=== PATIENT | male | born 1935 | race Caucasian/White ===

== ENCOUNTER 2019-04-15 10:59 | Inpatient (IN) | payer MEDICARE ==
--- NOTE | 2019-04-16 15:21 | Rehab Evaluation ---
Patient Information - Patient Information Diagnosis: deconditioning Ordered Treatment: OT Evaluate and Treat Status: Initial Evaluation Surgery: No Past Medical/Surgical Hx: PAST MEDICAL/SURGICAL HISTORY Past Surgical History pt states look up on record CABG diptheria bilateral total knees bilateral total hips PMH - Respiratory Hx Sleep Apnea Yes Hx of CPAP Yes PMH - Cardiovascular Hx Abnormal EKG Yes Hx Chest Pain Yes PMH - Neuro Hx Syncope Yes PMH - GI Hx Gastroesophageal Reflux Yes Hx Ulcer Yes PMH - Hx Bladder Problem Yes Hx Prostate Problems Yes PMH - Endocrine Hx Diabetes Yes Hx Thyroid Disease No PMH - Musculoskeletal Hx Arthritis Yes PMH - Psych Hx Anxiety Yes Hx Behavior Problems Yes Hx Depression Yes PMH - Hematology/Oncology Hx Cancer Yes: skin with multiple procedures Premorbid Status: Detail (Pt lives alone in a 1 story house with 3 steps and 2 wide railings at the entrance. He has a tub/shower combination and prefers to sit in the tub but he usually stands to shower. He has a seat but does not use it. He does have a grab bar in the tub. He has an elevated toilet, no grab bar. He is Ind with all home mgmt, meal prep, laundry and yard work. He has a 4 wheeled walker but was ambulatory without an assistive device until recently.) Social History: Detail (His son and daughter in law live 7 miles away) - Time With Patient Total Time Spent With Patient (Min): 25 Treatment Procedures: Detail (OT eval low complexity) Subjective Information - Subjective Information Per Patient Objective Data - Pain Pain Present: Yes (3-5/10 pain in left leg) - Mental Status Patient Orientation: Oriented x3 - Visual Perception Appears within normal limits for therapeutic activities (Pt wears glasses for reading) - ROM Within normal limits (Eduardo UE AROM WNL) - Strength/Tone Within normal limits (Eduardo UE strength 4+/5) - Coordination Appears within normal limits for therapeutic activities (Pt reports difficulty with coor at times.) - Transfers Independent (Ind with sit to stand from recliner) - Balance Balance Sitting: Good Balance Standing: Fair - Sensation Intact - Gait Detail (Pt ambulating in hallway with 2 wheeled walker and SBA.) - ADL's/IADL's Detail (Unable to formally assess ADLs as pt did not have any clothing available. He reports he was able to perform self cares today.) Therapy Assessment - Therapy Assessment Detail (Pt presents with good UE function and strength, need to further assess ADLs/IADLs.) Problem List - Problem List Occupational Therapy Problem List: Detail (1. Further assess pts level of Ind with showering and dressing. 2. Further assess pts level of Ind with IADLs.) Goals - Goals Occupational Therapy Goals: 1. Pt will be safe and Ind with showering in standing and sitting. 2. Pt will be Ind with total body dressing. 3. Pt will demonstrate Ind with light meal prep task using energy conservation techniques. Prognosis - Prognosis Good Plan - Plan Occupational Therapy Plan: OT 2-4 times per week to address ADLs/IADLs.
--- NOTE | 2019-04-16 15:56 | Rehab Evaluation ---
Patient Information - Patient Information Diagnosis: deconditioning Ordered Treatment: PT Evaluate and Treat Status: Initial Evaluation Surgery: No Past Medical/Surgical Hx: PAST MEDICAL/SURGICAL HISTORY Past Surgical History pt states look up on record CABG diptheria bilateral total knees bilateral total hips PMH - Respiratory Hx Respiratory Disorders Yes Hx Sleep Apnea Yes Hx of CPAP Yes Comment: doesn't use CPAP now PMH - Cardiovascular Hx Cardiovascular Disorders Yes Hx Abnormal EKG Yes Hx Chest Pain Yes Hx Heart Attack Yes: CABG Hx Hypertension Yes PMH - Neuro Hx Neurological Disorders Yes Hx Brain Tumor No Hx Syncope Yes PMH - GI Hx Gastrointestinal Disorders Yes Hx Gastroesophageal Reflux Yes Hx Ulcer Yes PMH - Hx Bladder Problem Yes Hx Prostate Problems Yes PMH - Endocrine Hx Diabetes Yes Hx Thyroid Disease No PMH - Musculoskeletal Hx Arthritis Yes PMH - Psych Hx Psychiatric Problems Yes Hx Anxiety Yes Hx Behavior Problems Yes Hx Depression Yes PMH - Hematology/Oncology Hx Cancer Yes: skin with multiple procedures Hx Chemotherapy Yes Premorbid Status: Detail (Pt lives alone in a 1 story house with 3 steps and 2 wide railings at the entrance. He has a tub/shower combination and prefers to sit in the tub but he usually stands to shower. He has a seat but does not use it. He does have a grab bar in the tub. He has an elevated toilet, no grab bar. He is Ind with all home mgmt, meal prep, laundry and yard work. He has a 4 wheeled walker but was ambulatory without an assistive device until recently.) Social History: Detail (His son and daughter in law live 7 miles away) Precautions: [place], Fall - Time With Patient Total Time Spent With Patient (Min): 30 Treatment Procedures: Detail (Initial Evaluation low complexity.) Subjective Information - Subjective Information Per Patient (The patient had complaints of constant L LE pain from hip to ankle laterally. Patient stated his pain was constantly 3 to 5 and increased with ambulation.) Objective Data - Mental Status Patient Orientation: Oriented x3 - ROM Within normal limits (Patient's R LE AROM is WNL. L LE AROM is minimally limited in dorsiflexion.) - Strength/Tone Not within normal limits (The patient's LE strength is as follows: R LE : generally 5/5 throughout (measured in a seated position) L LE: ankle musculature was dorsiflexors 4-/5, plantarflexors 4/5, knee flexors 4/5, extensors 4+/5, hip musculature was generally 4/5. Refer to OT for UE strength grades.) - Transfers Independent (The patient was independent with sit to and from sit transfer.) - Balance Balance Sitting: Good Balance Standing: Fair (The patient required support of walker for standing. Osvaldo [place] was not assessed using formal objective balance scale.) - Sensation Intact - Gait Detail (The patient ambulated with front wheeled walker a distance of 150 feet x 1 with supervision for safety. The patient's gait pattern was charecterized by L LE toeing out throughout, increased L hip adduction L swing through and as distance progressed decreased wt. bearing on the L LE and occasional L toe drag. The patient complained of increased LE pain with ambulation.) Therapy Assessment - Therapy Assessment Detail (The patient presents with L LE weakness and L LE pain which progresses with ambulation. Feel the patient would benefit from PT to increased LE strength and decrease pain,improve gait pattern and improve balance for functional activities.) Problem List - Problem List Physical Therapy Problem List: Detail (1) Assess the patient's balance using objective balance scale. 2) Increase LE strength 1/3 muscle grade to improve stability of gait pattern 3) Assess Bed mobility 4) The patient will be independent with all transfers. 5) The patient will ambulate household distances with minimal L LE pain with 4 wheeled walker and safe gait pattern.) Occupational Therapy Problem List: Detail (1. Further assess pts level of Ind with showering and dressing. 2. Further assess pts level of Ind with IADLs.) Goals - Goals Occupational Therapy Goals: 1. Pt will be safe and Ind with showering in standing and sitting. 2. Pt will be Ind with total body dressing. 3. Pt will demonstrate Ind with light meal prep task using energy conservation techniques. Prognosis - Prognosis Moderate Plan - Plan Physical Therapy Plan: PT 1-2 times a day for gait training, transfer training, LE strengthening and balance exercises. Occupational Therapy Plan: OT 2-4 times per week to address ADLs/IADLs.
[2019-04-16] MEDS ORDERED: MECLIZINE 25 MG TABLET PO PRN (16:23)
[2019-04-16] MEDS: GABAPENTIN 100 MG CAPSULE PO SCH ×2 (17:23→23:05)
--- NOTE | 2019-04-17 07:43 | History & Physical ---
History of Present Illness - Date Date of Service for History & Physical: 04/17/19 - History of Present Illness Admitting Diagnosis: deconditioning History of Present Illness: Hoang Pal is an 83 y.o. M who admits to the Swing Bed Program at [facility] from [facility] for deconditioning and further PT/OT. Admitted to [facility] from 04/11/19 to 04/17/19 for AMS. He presented to ER with c/o increased confusion, slurred speech and inappropriately answering questions which had worsened over several months. Was living at home alone prior and family concerned that he was not taking pills correctly. All workup was normal except for BUN and Creatinine elevation out of his normal (baseline creatinine around 2.1). He worked with PT/OT and it was felt that he would be appropriate for JANUARY placement to continue therapy for deconditioning. Hx: HTN, HLD, CAD (s/p CABG), CKD Stage 4, IDDM, depression/anxiety and chronic low back/bilateral leg pain, TIFAFNY, dizziness. PCP: Dr. Burroughs with [facility] 04/17/19 0800 Sitting up in bedside chair, eating breakfast. Reports that he slept well throughout the night and denies having any pain at this time. Denies SOB or CP. Reports some LE swelling that his at his baseline. Denies constipation or difficulty urinating. Concerned about insulin that has been administered. States that he takes "20 units of one and 1.5 of another". After reviewing hospital records, it appears that pt is referring to Tresiba and Victoza. General - Cognitive Patterns Orientation: Oriented x3 - Communication Preferred Language?: [place] Blood Bank Coordinator Required: No Level of Education: Grade 1-8 Comprehension Ability: No Impairment Able to Read: Yes Able to Write: Yes Select best description of speech pattern: Clear Speech Ability to express ideas and wants: Understood Understanding verbal content: Understands - Psychosocial Well-Being Usual Living Arrangement: Alone - Physical Functioning Activity Level: Up with assist x1 Turning: Self ad lorenzo ROM Ability: Moves all extremities Assistive Devices: 2 Wheel Walker Ambulation Ability: Needs Assist Bed Mobility: Independent Transfer Ability: Independent Bathing Ability: Needs Assist Personal Hygiene: Needs Assist Dressing Ability: Independent Eating (Feeding) Ability: Independent Toileting Ability: Needs Assist Administer Own Medication: Needs Assist - Continence Bowel Pattern: Normal for Patient Bladder Pattern: Normal Urinary Incontinence: Total - Dental Status Unable to examine: No Broken or loosely fitting full or partial dentures: No No natural teeth or tooth fragment(s) (edentulous): Yes Abnormal mouth tissue (ulcers, masses, oral lesions, etc.): No Obvious or likely cavity or broken natural teeth: No Inflamed or bleeding gums or loose natural teeth: No Mouth/facial pain, discomfort or difficulty chewing: No - Nutrition Screening Poor oral intake > 1 week: No Unplanned weight loss in specified time frame: No Nutrition Support via tube feedings or parenteral nutrition: No Pressure Ulcer: No Significantly underweight define as BMI <18.5 kg/m2: No Albumin <2.5mg/dL: No Persistent nausea/vomiting/diarrhea >3 days: No Difficulty chewing/swallowing/mouth sores: No Admitting Diagnosis: Yes Nutrition Risk Score: Low Risk Review of Systems Reviewed: No additional complaints except as noted below Constitutional: Denies: Fever, Malaise Respiratory: Denies: Cough, Dyspnea Cardiovascular: Reports: Edema. Denies: Chest pain, Dyspnea on exertion Endocrine: Denies: Polydipsia, Polyuria Gastrointestinal: Denies: Abdominal pain, Constipation, Diarrhea, Nausea Genitourinary: Denies: Dysuria, Frequency Musculoskeletal: Denies: Back pain Psychiatric: Denies: Anxiety, Depression Past Medical History - SOCIAL HISTORY Smoking Status: Never smoker Alcohol Use: None Drug use: None - SURGICAL HISTORY Past Surgical History: pt states look up on record. CABG. diptheria. bilateral total knees. bilateral total hips - RESPIRATORY Hx Respiratory Disorders: Yes Hx Sleep Apnea: Yes Hx of CPAP: Yes Comment:: doesn't use CPAP now - CARDIOVASCULAR Hx Cardio Disorders: Yes Hx Abnormal EKG: Yes Hx Chest Pain: Yes Hx Heart Attack: Yes (CABG) Hx Hypertension: Yes - NEURO Hx Neuro Disorders: Yes Hx Brain Tumor: No - GI Hx GI Disorders: Yes Hx Reflux: Yes Hx Ulcer: Yes - Hx Bladder Problem: Yes Hx Prostate Problems: Yes - ENDOCRINE Hx Diabetes: Yes Hx Thyroid Disease: No - MUSCULOSKELETAL Hx Arthritis: Yes - PSYCH Hx Psych Problems: Yes Hx Anxiety: Yes Hx Behavior Problems: Yes Hx Depression: Yes - HEMATOLOGY/ONCOLOGY Hx Cancer: Yes (skin with multiple procedures) Hx Chemotherapy: Yes Family Medical History Any Significant Family History?: Yes Hx Alcohol Use: Father H&P Meds/Allergies - Allergies Allergies: Allergies Allergy/AdvReac Type Severity Reaction Status Date / Time fentanyl Allergy HYPERSENSIT Verified 10/05/15 19:17 IVITY glimepiride [From Amaryl] Allergy HIVES Verified 10/05/15 19:17 - Active Medications Active Medications: Current Medications Acetaminophen/Codeine Phosphate (Acetaminophen-Cod #4 Tablet) 1 udtab PO TID PRN PRN Reason: PAIN - MOD TO SEVERE (5-10) Atorvastatin Calcium (Lipitor) 10 mg PO DAILY [facility] Clopidogrel Bisulfate (Plavix) 75 mg PO DAILY [facility] Escitalopram Oxalate (Lexapro) 5 mg PO DAILY [facility] Gabapentin (Neurontin) 100 mg PO TID [facility] Last Admin: 04/16/19 23:05 Dose: 100 mg Documented by: Insulin Detemir (Levemir Flextouch) 20 unit SQ DAILY [facility] Isosorbide Mononitrate (Imdur) 120 mg PO DAILY [facility] Lisinopril (Zestril) 10 mg PO DAILY [facility] Meclizine HCl (Antivert) 12.5 mg PO BID PRN PRN Reason: DIZZINESS Metoprolol Succinate (Toprol Xl) 25 mg PO DAILY [facility] Pantoprazole Sodium (Protonix) 40 mg PO DAILYAC [facility] Polyethylene Glycol (Miralax) 17 gm PO DAILY [facility] Physical Exam - Vital Signs Vital Signs: Vital Signs - Last 24 Hrs Temp Pulse Resp BP Pulse Ox 04/16/19 20:00 97.5 F L 68 16 152/71 99 04/16/19 13:55 98.1 F 72 12 109/65 96 - General General Appearance: Alert, Oriented x3, Cooperative, No acute distress - Respiratory Respiratory exam: Normal lung sounds bilaterally - Cardiovascular Cardiovascular Exam: Regular rate, Normal rhythm - GI/Abdominal GI/Abdominal exam: Soft, Normal bowel sounds - Rectal Rectal exam: Deferred - exam: Deferred - Extremities Extremities exam: Pedal edema (trace, non-pitting) - Neurological Neurological exam: Alert, CN II-XII intact, Oriented X3 - Psychiatric Psychiatric exam: Normal affect, Normal mood. negative: Agitated, Anxious, Depressed - Skin Skin exam: Other (several waxy, brown lesions scattered over body) Plan - Swing Bed Certification Initial Certification Due: 04/16/19 14 Day Re-Cert Due: 04/30/19 44 Day Re-Cert Due: 05/30/19 74 Day Re-Cert Due: 06/29/19 - Detailed Diagnosis and Plan (1) Physical deconditioning Current Visit: Yes Status: Acute Base Code: R53.81 - OTHER MALAISE Comment: 04/17/19 -6 day hospital stay d/t increased confusion -Physical deconditioning -PT/OT ordered (2) Chronic bilateral low back pain Current Visit: Yes Status: Acute Base Code: M54.5 - LOW BACK PAIN; G89.29 - OTHER CHRONIC PAIN Comment: 04/17/19 -Hx of chronic low back pain and taking T#4 PRN, Gabapentin 100mg TID at home -Continue T#4 TID PRN -Continue Gabapentin 100mg TID -PT/OT -Follows outpatient pain clinic with Dr. Egan (3) Confusion Current Visit: Yes Status: Acute Base Code: R41.0 - DISORIENTATION, UNSPECIFIED Comment: 04/17/19 -Improved -Will continue monitoring mental status and medication use (4) Insulin dependent diabetes mellitus Current Visit: Yes Status: Acute Base Code: E11.9 - TYPE 2 DIABETES MELLITUS WITHOUT COMPLICATIONS; Z79.4 - NATURAL RESOURCES TECHNICIAN (CURRENT) USE OF INSULIN Comment: 04/17/19 -Home meds: Tresiba 20units q. day and Victoza 1.2 daily -Sub Levemir for Tresiba while in [facility] -BGL this a.m. 132 -Levemir 20 units daily -Hold Victoza for now as not on formulary -Accucheck daily and PRN to monitor BGLs -Consider covering with sliding scale insulin while in [facility] or have family bring in Victoza (5) DVT prophylaxis Current Visit: Yes Status: Acute Base Code: Z29.9 - ENCOUNTER FOR PROPHYLACTIC MEASURES, UNSPECIFIED Comment: 04/17/19 -High risk d/t age and comorbidities -Encourage frequent ambulation with nursing staff and PT/OT (6) DNR (do not resuscitate) Current Visit: Yes Status: Acute Base Code: Z66 - DO NOT RESUSCITATE Comment: 04/17/19 -Do Not Resuscitate form completed with witness and provider -DNR this admission
--- NOTE | 2019-04-17 07:43 | Swing Bed Certification/Recert ---
Initial Certification Due: 04/16/19 14 Day Re-Cert Due: 04/30/19 44 Day Re-Cert Due: 05/30/19 74 Day Re-Cert Due: 06/29/19 CERTIFICATION CERTIFICATION OF PATIENT ADMISSION Required at time of admission. Due: 04/16/19 I certify that SNF services are required to be given on an inpatient basis because of the above named patient's need for fci care on a continuing basis for the condition(s) for which he/she was receiving inpatient hospital services prior to his/her transfer to the SNF. The patient's current needs for skilled care includes: [] LAINE WISDOM, N.P. 04/17/19
[2019-04-17] MEDS: POLYETHYLENE GLY 17 GM PACKET PO SCH (09:26)
[2019-04-17] MEDS: GABAPENTIN 100 MG CAPSULE PO SCH ×3 (09:27→21:11)
[2019-04-17] MEDS: ATORVASTATIN 20 MG TABLET PO SCH (09:27)
[2019-04-17] MEDS: CLOPIDOGREL 75MG TABLET PO SCH (09:27)
[2019-04-17] MEDS: METOPROLOL SUCC 25 MG TAB.ER PO SCH (09:28)
[2019-04-17] MEDS: ISOSORBIDE MONONITRATE 60 MG TAB.ER.24H PO SCH (09:28)
[2019-04-17] MEDS: LISINOPRIL 10 MG TABLET PO SCH (09:29)
[2019-04-17] MEDS: ESCITALOPRAM 10 MG TABLET PO SCH (09:29)
[2019-04-17] MEDS: PANTOPRAZOLE SODIUM 40 MG TABLET PO SCH (09:35)
[2019-04-17] MEDS: LEVEMIR FLEXTOUCH 100 UNIT/ML INSULIN PEN SQ SCH (10:09)
--- NOTE | 2019-04-17 10:40 | Physical Therapy Tx Note ---
Physical Therapy Tx Note - Treatment Note Tolerated: Good Total Time Spent With Patient: 30 Physical Therapy Tx Note: Detail (Patient states left hip and left LE painful this morning. Patient was seated in chair upon SOLVENT PLANT OPERATOR arrival. Patient transferred sit to and from stand CGA x1. Patient ambulated 70 feet with wheeled walker CGA x1. Patient performed the following exercises x10-15 reps seated in chair: heel raises, toe raises, abdominal isometrics, glut squeezes, marching, LAQ, hamstring curls with yellow theraband, hip abduction with yellow theraband, and isometric hip adduction. Patient tolerated treatment well. Patient reports left LE pain with ambulation. Patient reports no increased complaints of pain after treatment. Patient was reclined in chair with call light within reach.) Physical Therapy Problem List: Detail (1) Assess the patient's balance using objective balance scale. 2) Increase LE strength 1/3 muscle grade to improve stability of gait pattern 3) Assess Bed mobility 4) The patient will be independent with all transfers. 5) The patient will ambulate household distances with minimal L LE pain with 4 wheeled walker and safe gait pattern.) Prognosis: Good Physical Therapy Plan: PT 1-2 times a day for gait training, transfer training, LE strengthening and balance exercises.
[2019-04-17] MEDS: ACETAMINOPHEN W/ CODEINE 300MG/60MG TABLET PO PRN ×2 (13:41→18:19)
--- NOTE | 2019-04-17 15:47 | Physical Therapy Tx Note ---
Physical Therapy Tx Note - Treatment Note Tolerated: Good Total Time Spent With Patient: 30 Physical Therapy Tx Note: Detail (Patient was seated in chair upon OIL DERRICK OPERATOR arrival. Patient states he just took pain medication for left LE pain prior to OIL DERRICK OPERATOR entering room. Patient states left LE more painful this afternoon. Patient donned shoes indpendently. Patient transferred sit to and from stand CGA x1. Patient ambulated 10 feet, to and from bathroom with wheeled walker CGA x1. Patient declined further ambulation due to L LE pain. Patient transferred sit to and from stand CGA x1. Patient performed the following exercises x15 seconds each: DLS with looking up and down, DLS with looking side to side, DLS with pertubations, DLS with reaching for therapist hand in various positions, stride stance bilateral, feet together, and feet together with eyes closed. Patient performed the following exercises x10-15 reps each: standing heel raises, standing toe raises, standing hip extension, standing hip abduction, standing marching, LAQ, seated hamstring curls with red theraband, seated hip abduction with red theraband, seated isometric hip adduction. Patient required a couple seated rest breaks with standing balance and standing exercises due to left LE pain and fatigue. Patient displays decreased strength and endurance with LAQ, standing toe raises, and hamstring curls with theraband. Patient displays decreased balance with feet together, feet together eyes closed, stride stance, and DLS with pertubations. Patient displays some left knee buckeling when attempting to stand on left LE for extended periods of time with exercises, reporting increased pain. Patient reports frustration throughout treatment of hip and LE pain, and that he isn't able to walk as far recently due to it. Patient was left seated in chair with call light within reach.) Physical Therapy Problem List: Detail (1) Assess the patient's balance using objective balance scale. 2) Increase LE strength 1/3 muscle grade to improve stability of gait pattern 3) Assess Bed mobility 4) The patient will be independent with all transfers. 5) The patient will ambulate household distances with minimal L LE pain with 4 wheeled walker and safe gait pattern.) Prognosis: Good Physical Therapy Plan: PT 1-2 times a day for gait training, transfer training, LE strengthening and balance exercises.
[2019-04-18] MEDS: PANTOPRAZOLE SODIUM 40 MG TABLET PO SCH (06:32)
--- NOTE | 2019-04-18 08:01 | Occupational Therapy Tx Note ---
Occupational Therapy Tx Note - Treatment Note Tolerated: Good Total Time Spent With Patient: 40 (2 ADL, 1 ther activity) Occupational Therapy Treatment Note: Detail (Pt sleeping upon arrival but easily woken and willing to engage in therapy. Pt states he did not sleep well due to 8/10 pain in LLE. He states pain is still 8/10 this morning. Nsg aware of pain level and asked pt if he would like any pain meds but pt refused at this time wanting to see how drsg and walking go this morning first. Patient completed UB and LB drsg independently. He donned undershirt and SS button down shirt independently from standing w/o walker or any loss of balance. Patient sat to [facility] over feet then stood for independent pin puller hips. Patient threaded belt through shorts while sitting, threaded over feet from sitting, then independent sit<>stand t/f to pin puller hips without use of walker. Patient donned velcro shoes independently. Pt refused shower due to pain in LLE but was made aware that this is a task we would want to ensure safety with. He did mention that he never showers or takes a bath without his son present. He prefers baths over showers but is willing to do whatever his current function will allow him to do. At first patient did not want to ambulate due to pain, however, with minimal prompting, agreed and ambulated from room to [facility] room [facility] (158 ft) with 2WW and SBA. Pain in LLE began to increase at half way point in which he started putting more weight through RLE but made it back to room with no issues. Pt left in bedside chair with alarm on, tray table in front of pt, and call button with patient. Pt even asked if therapist would come back before his next scheduled therapy session to try ambulating again. Assess showering at next visit.) Occupational Therapy Problem List: Detail (1. Further assess pts level of Ind with showering and dressing. 2. Further assess pts level of Ind with IADLs.) Occupational Therapy Goals: 1. Pt will be safe and Ind with showering in standing and sitting. 2. Pt will be Ind with total body dressing. 3. Pt will demonstrate Ind with light meal prep task using energy conservation techniques. Prognosis: Good Occupational Therapy Plan: OT 2-4 times per week to address ADLs/IADLs.
[2019-04-18] MEDS: ISOSORBIDE MONONITRATE 60 MG TAB.ER.24H PO SCH (09:39)
[2019-04-18] MEDS: ATORVASTATIN 20 MG TABLET PO SCH (09:39)
[2019-04-18] MEDS: ESCITALOPRAM 10 MG TABLET PO SCH (09:39)
[2019-04-18] MEDS: METOPROLOL SUCC 25 MG TAB.ER PO SCH (09:40)
[2019-04-18] MEDS: POLYETHYLENE GLY 17 GM PACKET PO SCH (09:40)
[2019-04-18] MEDS: GABAPENTIN 100 MG CAPSULE PO SCH ×3 (09:40→21:11)
[2019-04-18] MEDS: LISINOPRIL 10 MG TABLET PO SCH (09:40)
[2019-04-18] MEDS: CLOPIDOGREL 75MG TABLET PO SCH (09:40)
[2019-04-18] MEDS: LEVEMIR FLEXTOUCH 100 UNIT/ML INSULIN PEN SQ SCH (11:04)
--- NOTE | 2019-04-18 13:52 | Physical Therapy Tx Note ---
Physical Therapy Tx Note - Treatment Note Tolerated: Good Total Time Spent With Patient: 30 Physical Therapy Tx Note: Detail (The patient was up in chair when PT arrived. The patient had no complaints of L LE pain. The pt. ambulated with front wheeled walker a distance of 200 feet x 1 with supervision for safety only. The patient had one episode of LOB when L hip adducted and tripped up his R foot. Patient was cued to ambulate with his feet apart. The patient after aprox. 110 feet c/o L LE pain and began to exhibit decreased wt. bearing on L LE. The patient was instructed in the following LE exercises seated: resisted hip abduction, LAQ, hamstring curls, and hip adductor squeezes. The patient completed the following in standing: L hip donkey kicks, B hip abduction, toe raises and knee squats all x 20 reps. The pt's balance was tested using Tinetti assessment tool and scored 18/28 which is at a high risk for falls category.) Physical Therapy Problem List: Detail (1) Assess the patient's balance using objective balance scale. 2) Increase LE strength 1/3 muscle grade to improve stability of gait pattern 3) Assess Bed mobility 4) The patient will be independent with all transfers. 5) The patient will ambulate household distances with minimal L LE pain with 4 wheeled walker and safe gait pattern.) Physical Therapy Goals: 1) Assess Bed Mobility. 2) The patient will ambulate on stairs independently using proper technique. 3) The patient will ambulate safely outdoors with use of assistive device with supervision/independent. 4) The patient will ambulate with appropriate assistive device community distances using safe gait pattern and with minimal complaints of pain in L L LE. 5. Improve the patients balance by 4 points (clincial significant) Physical Therapy Plan: PT 1-2 times a day for gait training, transfer training, LE strengthening and balance exercises.
[2019-04-18] MEDS: ACETAMINOPHEN W/ CODEINE 300MG/60MG TABLET PO PRN (23:11)
[2019-04-19] MEDS: PANTOPRAZOLE SODIUM 40 MG TABLET PO SCH (06:56)
[2019-04-19] MEDS: ISOSORBIDE MONONITRATE 60 MG TAB.ER.24H PO SCH (09:55)
[2019-04-19] MEDS: LISINOPRIL 10 MG TABLET PO SCH (09:56)
[2019-04-19] MEDS: ESCITALOPRAM 10 MG TABLET PO SCH (09:56)
[2019-04-19] MEDS: CLOPIDOGREL 75MG TABLET PO SCH (09:57)
[2019-04-19] MEDS: METOPROLOL SUCC 25 MG TAB.ER PO SCH (09:57)
[2019-04-19] MEDS: ATORVASTATIN 20 MG TABLET PO SCH (09:57)
[2019-04-19] MEDS: GABAPENTIN 100 MG CAPSULE PO SCH ×3 (09:58→21:34)
[2019-04-19] MEDS: LEVEMIR FLEXTOUCH 100 UNIT/ML INSULIN PEN SQ SCH (09:59)
[2019-04-19] MEDS: POLYETHYLENE GLY 17 GM PACKET PO SCH (10:12)
[2019-04-19] MEDS: ACETAMINOPHEN W/ CODEINE 300MG/60MG TABLET PO PRN ×2 (14:19→22:42)
[2019-04-20] MEDS: DIPHENHYDRAMINE HCL 25 MG CAPSULE PO PRN ×2 (03:27→22:44)
[2019-04-20] MEDS: PANTOPRAZOLE SODIUM 40 MG TABLET PO SCH (07:04)
[2019-04-20] MEDS: ESCITALOPRAM 10 MG TABLET PO SCH (09:54)
[2019-04-20] MEDS: METOPROLOL SUCC 25 MG TAB.ER PO SCH (09:55)
[2019-04-20] MEDS: ATORVASTATIN 20 MG TABLET PO SCH (09:55)
[2019-04-20] MEDS: GABAPENTIN 100 MG CAPSULE PO SCH ×3 (09:56→21:05)
[2019-04-20] MEDS: ISOSORBIDE MONONITRATE 60 MG TAB.ER.24H PO SCH (09:56)
[2019-04-20] MEDS: CLOPIDOGREL 75MG TABLET PO SCH (09:56)
[2019-04-20] MEDS: LISINOPRIL 10 MG TABLET PO SCH (09:57)
[2019-04-20] MEDS: POLYETHYLENE GLY 17 GM PACKET PO SCH (09:58)
[2019-04-20] MEDS: LEVEMIR FLEXTOUCH 100 UNIT/ML INSULIN PEN SQ SCH (09:58)
[2019-04-21] MEDS: PANTOPRAZOLE SODIUM 40 MG TABLET PO SCH (06:33)
--- NOTE | 2019-04-21 08:09 | Occupational Therapy Tx Note ---
Occupational Therapy Tx Note - Treatment Note Tolerated: Good Total Time Spent With Patient: 40 (2 ADL, 1TA) Occupational Therapy Treatment Note: Detail (Pt sleeping upon arrival but easily woken and willing to participate in therapy. Pt refused shower due to having just had one yesterday with nsg. According to nsg note, but was Independent with clothing management and washing during showering but with SBA for safety. Pt was independent with UB and LB drsg including socks and shoes. Independent sit<>stand t/f from edge of bed for pants pipe puller hips as well as remaining in standing to don t-shirt and button down short sleeve shirt. Independent with all buttons. Pt ambulated SBA from room to end of hallway emergency exit door (280 feet) with bilateral crutches. Rest break (~5 min) at end of hallway, then amb back to room. Pt up in bedside chair with chair alarm on, call light in reach and nsg present to take vitals and check blood sugar levels. Overall, pt showed significant increase in endurance for self care tasks and ambulating household distances. He is independent with all drsg tasks and is wanting to return home as soon as possible. He would like to go home today but just got off the phone with his daughter who insists he has to stay until sunday due to "everything will be set up by then." Pt's only fear is stairs. Will talk to physical therapy about this.) Occupational Therapy Problem List: Detail (1. Further assess pts level of Ind with showering and dressing. 2. Further assess pts level of Ind with IADLs.) Occupational Therapy Goals: 1. Pt will be safe and Ind with showering in standing and sitting. 2. Pt will be Ind with total body dressing. 3. Pt will demonstrate Ind with light meal prep task using energy conservation techniques. Prognosis: Good Occupational Therapy Plan: OT 2-4 times per week to address ADLs/IADLs.
[2019-04-21] MEDS: LEVEMIR FLEXTOUCH 100 UNIT/ML INSULIN PEN SQ SCH (09:05)
[2019-04-21] MEDS: ISOSORBIDE MONONITRATE 60 MG TAB.ER.24H PO SCH (09:08)
[2019-04-21] MEDS: METOPROLOL SUCC 25 MG TAB.ER PO SCH (09:08)
[2019-04-21] MEDS: GABAPENTIN 100 MG CAPSULE PO SCH ×3 (09:08→21:29)
[2019-04-21] MEDS: LISINOPRIL 10 MG TABLET PO SCH (09:08)
[2019-04-21] MEDS: ATORVASTATIN 20 MG TABLET PO SCH (09:09)
[2019-04-21] MEDS: CLOPIDOGREL 75MG TABLET PO SCH (09:09)
[2019-04-21] MEDS: POLYETHYLENE GLY 17 GM PACKET PO SCH (09:10)
[2019-04-21] MEDS: ESCITALOPRAM 10 MG TABLET PO SCH (09:10)
--- NOTE | 2019-04-21 10:04 | Physical Therapy Tx Note ---
Physical Therapy Tx Note - Treatment Note Tolerated: Fair Total Time Spent With Patient: 20 Physical Therapy Tx Note: Detail (The patient was up in chair when PT arrived and anxious to ambulate. The patient had his friend bring his crutches in over the weekend and stated he had been walking with nursing staff. Patient per nursing staff is refusing to use a walker. Patient's family has not brought in his 4 wheeled walker yet. The patient ambulated on 3 steps with crutch and one railing with supervision for safety. Patient required CG when ambulating on stairs with 2 crutches. The patient ambulated with crutches 20 feet on tile floor using reciprocal gait pattern with one episode of LOB which pt. was able to catch himself without intervention of PT. The patient ambulated on sidewalk with crutches and grass with CG of one due to several episodes with LOB. Patient agreed he should use walker when ambulating on grass and out doors at home. The patient complained of calf pain level 6 after ambulating but not the sharp hip to toe pain that he experienced last week. PT completed nerve glides sciatic nerve and calf stretching after ambulating. Pt's pain was decreased after nerve glides and calf stretching. Discussed at going home and what patient needs to do functionally. The patient was able to relate to PT the proper technique to get up from floor. He also stated his family is aquiring a tub lift to get him up from the tub floor when he takes a bath. Will see the patient this pm with gait training with a cane.) Physical Therapy Problem List: Detail (1) Assess the patient's balance using objective balance scale. 2) Increase LE strength 1/3 muscle grade to improve stability of gait pattern 3) Assess Bed mobility 4) The patient will be independent with all transfers. 5) The patient will ambulate household distances with minimal L LE pain with 4 wheeled walker and safe gait pattern.) Physical Therapy Goals: 1) Assess Bed Mobility. 2) The patient will ambulate on stairs independently using proper technique. 3) The patient will ambulate safely outdoors with use of assistive device with supervision/independent. 4) The patient will ambulate with appropriate assistive device community distances using safe gait pattern and with minimal complaints of pain in L L LE. 5. Improve the patients balance by 4 points (clincial significant) Physical Therapy Plan: PT 1-2 times a day for gait training, transfer training, LE strengthening and balance exercises.
--- NOTE | 2019-04-21 14:31 | Physical Therapy Tx Note ---
Physical Therapy Tx Note - Treatment Note Tolerated: Good Total Time Spent With Patient: 30 Physical Therapy Tx Note: Detail (The patient was up in a chair when PT arrived. The patient ambulated 10 feet with a standard cane and stated he was putting too much wt. br. on L LE. The patient ambulated with crutches a distance 453 feet and 200 feet with supervision for safety ( down ramp and up ramp.) No episodes of LOB. Pt. required verbal cues to slow down. The patient completed the following exercises in the parallel bars: standing squats, toe raises, hip abduction all x 10 reps, standing balance on cushion with normal stance and narrow stance. PT complete sciatic nerve glides and gastroc stretching of L LE. The patient ambulated without LOB this pm and at a slower safer pace.) Physical Therapy Problem List: Detail (1) Assess the patient's balance using objective balance scale. 2) Increase LE strength 1/3 muscle grade to improve stability of gait pattern 3) Assess Bed mobility 4) The patient will be independent with all transfers. 5) The patient will ambulate household distances with minimal L LE pain with 4 wheeled walker and safe gait pattern.) Physical Therapy Goals: 1) Assess Bed Mobility. 2) The patient will ambulate on stairs independently using proper technique. 3) The patient will ambulate safely outdoors with use of assistive device with supervision/independent. 4) The patient will ambulate with appropriate assistive device community distances using safe gait pattern and with minimal complaints of pain in L L LE. 5. Improve the patients balance by 4 points (clincial significant) Physical Therapy Plan: PT 1-2 times a day for gait training, transfer training, LE strengthening and balance exercises.
[2019-04-21] MEDS: ACETAMINOPHEN W/ CODEINE 300MG/60MG TABLET PO PRN (21:29)
[2019-04-21] MEDS: DIPHENHYDRAMINE HCL 25 MG CAPSULE PO PRN (23:26)
[2019-04-22] MEDS: PANTOPRAZOLE SODIUM 40 MG TABLET PO SCH (06:40)
[2019-04-22] MEDS: LEVEMIR FLEXTOUCH 100 UNIT/ML INSULIN PEN SQ SCH ×2 (08:34→09:42)
[2019-04-22] MEDS: NOVOLOG FLEXPEN (INSULIN ASPART) 100 UNITS/ML SQ SCH ×3 (09:16→18:23)
[2019-04-22] MEDS: POLYETHYLENE GLY 17 GM PACKET PO SCH (09:35)
[2019-04-22] MEDS: ATORVASTATIN 20 MG TABLET PO SCH (09:35)
[2019-04-22] MEDS: ESCITALOPRAM 10 MG TABLET PO SCH (09:36)
[2019-04-22] MEDS: METOPROLOL SUCC 25 MG TAB.ER PO SCH (09:36)
[2019-04-22] MEDS: CLOPIDOGREL 75MG TABLET PO SCH (09:37)
[2019-04-22] MEDS: GABAPENTIN 100 MG CAPSULE PO SCH ×3 (09:37→21:47)
[2019-04-22] MEDS: ISOSORBIDE MONONITRATE 60 MG TAB.ER.24H PO SCH (09:37)
[2019-04-22] MEDS: LISINOPRIL 10 MG TABLET PO SCH (09:37)
--- NOTE | 2019-04-22 11:50 | Physical Therapy Tx Note ---
Physical Therapy Tx Note - Treatment Note Tolerated: Good Total Time Spent With Patient: 25 Physical Therapy Tx Note: Detail (The patient was sleeping in recliner when PT arrived. The patient reported increased L buttock and posterior LE pain last night while sleeping. Patient stated he did not sleep well last night and may have over did it. PT completed L sciatic glides and calf/hamstring stretch. The patient ambulated on 3 steps with one crutch and railing with supervision for safety. The patient ambulated with crutches using reciprocal pattern with supervision , occasional CG a distance of 280 feet x 2 with 2 incidents of LOB with patient able to right self. The patient also ambulated on carpet. Patient continues to require verbal cues to slow down. The patient's crutches were readjusted to proper height. Discussed at length proper sleeping position ie: s idelying, supine with legs elevated. Will provide patient with hand outs including calf stretching and sciatic nerve glides.) Physical Therapy Problem List: Detail (1) Assess the patient's balance using objective balance scale. 2) Increase LE strength 1/3 muscle grade to improve stability of gait pattern 3) Assess Bed mobility 4) The patient will be independent with all transfers. 5) The patient will ambulate household distances with minimal L LE pain with 4 wheeled walker and safe gait pattern.) Physical Therapy Goals: 1) Assess Bed Mobility. 2) The patient will ambulate on stairs independently using proper technique. 3) The patient will ambulate safely outdoors with use of assistive device with supervision/independent. 4) The patient will ambulate with appropriate assistive device community distances using safe gait pattern and with minimal complaints of pain in L L LE. 5. Improve the patients balance by 4 points (clincial significant) Physical Therapy Plan: PT 1-2 times a day for gait training, transfer training, LE strengthening and balance exercises.
--- NOTE | 2019-04-22 14:17 | Occupational Therapy Tx Note ---
Occupational Therapy Tx Note - Treatment Note Occupational Therapy Treatment Note: Detail (Pt refused am session for shower eval. He reports he will not have any difficulty and that his family has installed a tub lift chair as he prefers to soak in the bathtub.) Occupational Therapy Problem List: Detail (1. Further assess pts level of Ind with showering and dressing. 2. Further assess pts level of Ind with IADLs.) Occupational Therapy Goals: 1. Pt will be safe and Ind with showering in standing and sitting. 2. Pt will be Ind with total body dressing. 3. Pt will demonstrate Ind with light meal prep task using energy conservation techniques. Occupational Therapy Plan: OT 2-4 times per week to address ADLs/IADLs.
--- NOTE | 2019-04-22 14:22 | Occupational Therapy Tx Note ---
Occupational Therapy Tx Note - Treatment Note Tolerated: Good Total Time Spent With Patient: 45 (ADL) Occupational Therapy Treatment Note: Detail (S: Pt agreeable to kitchen activity. O: Sit to stand and amb 200 + feet with crutches and SBA. Pt transported remaining distance to rehab kitchen via wheelchair. Pt educated re: kitchen safety with crutches vs. 4 wheeled walker as well as positioning items in kitchen for safety and easy reach. Pt was able to demonstrate light activity using coffee pot with crutches and kitchen counter safely. Reviewed modifications for laundry and home mgmt tasks while using 4 wheeled walker vs. crutches. Pt agreeable to using walker during IADLs for safety. Pt able to demonstrate transfer into and out of tub using grab bar and wall Indly. Pt amb 150 feet with crutches and transported remaining distance to room via wheelc hair. He was Ind with sit to stand and amb back to chair. A: Pt is Ind with modified techniques for light meal prep and tub transfer.) Occupational Therapy Problem List: Detail (1. Further assess pts level of Ind with showering and dressing. 2. Further assess pts level of Ind with IADLs.) Occupational Therapy Goals: 1. Pt will be safe and Ind with showering in standing and sitting. 2. Pt will be Ind with total body dressing. 3. Pt will demonstrate Ind with light meal prep task using energy conservation techniques. Prognosis: Good Occupational Therapy Plan: OT 2-4 times per week to address ADLs/IADLs.
[2019-04-22] MEDS: DIPHENHYDRAMINE HCL 25 MG CAPSULE PO PRN (21:47)
[2019-04-23] MEDS: ACETAMINOPHEN W/ CODEINE 300MG/60MG TABLET PO PRN (01:33)
[2019-04-23] MEDS: PANTOPRAZOLE SODIUM 40 MG TABLET PO SCH (06:39)
[2019-04-23] MEDS: NOVOLOG FLEXPEN (INSULIN ASPART) 100 UNITS/ML SQ SCH ×2 (09:09→13:23)
[2019-04-23] MEDS: POLYETHYLENE GLY 17 GM PACKET PO SCH (09:10)
[2019-04-23] MEDS: ESCITALOPRAM 10 MG TABLET PO SCH (09:11)
[2019-04-23] MEDS: METOPROLOL SUCC 25 MG TAB.ER PO SCH (09:12)
[2019-04-23] MEDS: ATORVASTATIN 20 MG TABLET PO SCH (09:12)
[2019-04-23] MEDS: ISOSORBIDE MONONITRATE 60 MG TAB.ER.24H PO SCH (09:12)
[2019-04-23] MEDS: GABAPENTIN 100 MG CAPSULE PO SCH (09:13)
[2019-04-23] MEDS: LISINOPRIL 10 MG TABLET PO SCH (09:13)
[2019-04-23] MEDS: CLOPIDOGREL 75MG TABLET PO SCH (09:13)
[2019-04-23] MEDS: LEVEMIR FLEXTOUCH 100 UNIT/ML INSULIN PEN SQ SCH (09:14)
--- NOTE | 2019-04-23 10:33 | Discharge Summary ---
Providers Discharge Summary Date: 04/23/19 Date of admission: 04/16/19 14:33 Expected Date of Discharge: 04/23/19 Attending physician: GRETA WARNER Primary care physician: SUBHASH BURROUGHS Physical Exam - Vital Signs Vital Signs: Vital Signs - Last 24 Hrs Temp Pulse Resp BP Pulse Ox 04/23/19 08:00 97.3 F L 86 18 139/56 98 04/22/19 20:00 98.1 F 78 16 120/58 98 - General General Appearance: Alert, Oriented x3, Cooperative, No acute distress - Head Head exam: Normal inspection - Eye Eye exam: Normal appearance, PERRL Pupils: Normal accommodation - ENT ENT exam: Normal exam, Mucous membranes moist, Normal external ear exam, Normal orophraynx, TM's normal bilaterally Ear exam: Normal external inspection. negative: External canal tenderness Nasal Exam: Normal inspection. negative: Discharge, Sinus tenderness Mouth exam: Normal external inspection, Tongue normal Teeth exam: Normal inspection. negative: Dental caries Throat exam: Normal inspection. negative: Tonsillar erythema, Tonsillar exudate - Neck Neck exam: Normal inspection, Full ROM. negative: Tenderness - Respiratory Respiratory exam: Normal lung sounds bilaterally - Cardiovascular Cardiovascular Exam: Regular rate, Normal rhythm - GI/Abdominal GI/Abdominal exam: Soft, Normal bowel sounds - Rectal Rectal exam: Deferred - exam: Deferred - Extremities Extremities exam: Pedal edema (trace, non-pitting) - Back Back exam: Reports: Normal inspection, Full ROM. Denies: Muscle spasm, Rash noted, Tenderness - Neurological Neurological exam: Alert, CN II-XII intact, Oriented X3 - Psychiatric Psychiatric exam: Normal affect, Normal mood. negative: Agitated, Anxious, Depressed - Skin Skin exam: Other (several waxy, brown lesions scattered over body) Hospitalization - Hospitalization Admission Diagnosis: deconditioning - Disposition to home medically stable - Hospitalization Course Disposition: Home, Self-Care Reason For Discharge/Transfer: Medical Stability Hospital Course: Hoang Pal is an 83 y.o. M who admits to the [facility] Program at [facility] from [facility] for deconditioning and further PT/OT. Admitted to [facility] from 04/11/19 to 04/17/19 for AMS. He presented to ER with c/o increased confusion, slurred speech and inappropriately answering questions which had worsened over several months. Was living at home alone prior and family concerned that he was not taking pills correctly. All workup was normal except for BUN and Creatinine elevation out of his normal (baseline creatinine around 2.1). He worked with PT/OT and it was felt that he would be appropriate for JANUARY placement to continue therapy for deconditioning. Hx: HTN, HLD, CAD (s/p CABG), CKD Stage 4, IDDM, depression/anxiety and chronic low back/bilateral leg pain, TIFFANY, dizziness. PCP: Dr. Burroughs with [facility] 04/17/19 0800 Sitting up in bedside chair, eating breakfast. Reports that he slept well throughout the night and denies having any pain at this time. Denies SOB or CP. Reports some LE swelling that his at his baseline. Denies constipation or difficulty urinating. Concerned about insulin that has been administered. States that he takes "20 units of one and 1.5 of another". After reviewing hospital records, it appears that pt is referring to [facility]. 04/23/2019 Patient is stronger and ready to go home and doing very well Abnormal Labs: Abnormal Lab Results 04/17/19 04/17/19 04/17/19 Range/Units 07:51 17:17 21:20 POC Glucose 132 H 113 H 232 H (70-110) mg/dL 04/18/19 04/18/19 04/18/19 Range/Units 14:00 17:11 22:00 POC Glucose 173 H 148 H 116 H (70-110) mg/dL 04/19/19 04/19/19 04/20/19 Range/Units 17:12 22:00 11:30 POC Glucose 163 H 196 H 243 H (70-110) mg/dL 04/20/19 04/21/19 04/21/19 Range/Units 16:57 07:51 11:51 POC Glucose 219 H 111 H 198 H (70-110) mg/dL 04/21/19 04/21/19 04/22/19 Range/Units 17:28 22:43 07:49 POC Glucose 201 H 256 H 112 H (70-110) mg/dL 04/22/19 04/22/19 04/22/19 Range/Units 12:02 17:41 23:07 POC Glucose 204 H 245 H 246 H (70-110) mg/dL Condition at Discharge: (1) Good Discharge Diagnosis: deconditioning fron altered mental status / confusion. chronic low back pain. misuse of medication. Acute renal failure. dehydration. hypertension. DM type 2. CAD Discharge Medications - Discharge Medications Prescriptions: Acetaminop W/ Codeine 300/60Mg [Acetaminophen-Cod #4 Tablet] 1 udtab PO TID PRN #9 tablet PRN Reason: Pain - Mod To Severe (5-10) Polyethylene Glycol 3350 [Miralax] 17 gm PO DAILY #1 bottle Home Medications: Ambulatory Orders Clopidogrel Bisulfate [Plavix] 75 mg PO DAILY 10/05/15 [Last Taken Unknown] Isosorbide Mononitrate [Isosorbide Mononitrate ER] 120 mg PO DAILY 10/05/15 [Last Taken Unknown] Lisinopril 10 mg PO DAILY 10/05/15 [Last Taken Unknown] Atorvastatin Calcium 10 mg PO DAILY 04/17/19 [Last Taken Unknown] Escitalopram Oxalate [Lexapro] 5 mg PO DAILY 04/17/19 [Last Taken Unknown] Gabapentin [Neurontin] 100 mg PO TID 04/17/19 [Last Taken Unknown] Insulin Degludec [Tresiba Flextouch U-100] 20 units SQ DAILY 04/17/19 [Last Taken Unknown] Metoprolol Succinate 25 mg PO DAILY 04/17/19 [Last Taken Unknown] Pantoprazole Sodium [Protonix] 40 mg PO DAILYAC 04/17/19 [Last Taken Unknown] Acetaminop W/ Codeine 300/60Mg [Acetaminophen-Cod #4 Tablet] 1 udtab PO TID PRN #9 tablet 04/23/19 [Last Taken Unknown] Polyethylene Glycol 3350 [Miralax] 17 gm PO DAILY #1 bottle 04/23/19 [Last Taken Unknown] Discharge Plan - Discharge Instructions Activity at Discharge: Increase Activity as Tolerated Diet at Discharge: Low Salt Diet Additional Instructions: -[facility] will see you at home. They will contact you to schedule first visit. They can be reached at -Follow up with Dr. Burroughs on 05/06 as previously scheduled use tylenol 325 mg three times a day for moderate pain use tylenol #4 every 6 hour for severe pain and use as little as possible, In the last 5 days only had one pill Quality Measures - Quality Measures Quality Measures: Advance Directives, Documentation of Current Medications in Medical Record, Elder Maltreatment Screen and Follow-Up Plan, Screening for High Blood Pressure and F/U Documented - Current Medications Quality Measure: Measure #130: Documentation of Current Medications Documentation of Current Medications: <Current Medications Documented/Reviewed> [G0763] - Blood Pressure Screening Quality Measure: Screening for High Blood Pressure and Follow-Up Documented Does Patient Have Any of the Following: Active Dx of HTN Blood Pressure Classification: Normal BP Reading Systolic Measurement: 119 Diastolic Measurement: 62 Screening for High Blood Pressure: Patient Exclusion, Hx of HTN [G9744] - Advance Directives Quality Measure: Measure #47: Care Plan Advance Directives Established: No Advance Directives Information Provided To Patient: No Advance Directives on File: Yes Power of Wash Rack Operator: Yes Power of Wash Rack Operator Name: Claudio Pal Advance Care Planning: <Care Plan/Decision Maker Documented; Discussed & Docum ented> [1123F] - Elder Abuse Suspicion Index Screening: Elder Abuse Suspicion Index Screening Rely on people for bathing, dressing, shopping, banking, etc: No Prevented from getting food, clothes, medication, etc: No Made to feel shamed or threatened by someone: No Forced to sign papers or use money against will: No Feel afraid, touched in ways not wanted or hurt physically: No Poor eye contact, withdrawn, malnourished, cuts or bruises: No Screening Result: Negative result EASI Reference Information: Anjel MORRELL, Lalito C, Adriana D, Jefe M.Development and validation of a tool to assist physicians identification of elder abuse: The Elder Abuse Suspicion Index (EASI ). Journal of Elder Abuse and Neglect, 2008; 20 (3): 276-300. - Elder Maltreatment Screen Quality Measures: Elder Maltreatment Screen and Follow-Up Plan Elder Maltreatment Screen: <Negative, No Follow-Up Plan Required> [G8734]
--- NOTE | 2019-04-23 12:49 | Rehab Discharge Summary ---
Patient Information - Patient Information Diagnosis: deconditioning Ordered Treatment: OT Evaluate and Treat Surgery: No Past Medical/Surgical Hx: PAST MEDICAL/SURGICAL HISTORY Past Surgical History pt states look up on record CABG diptheria bilateral total knees bilateral total hips PMH - Respiratory Hx Respiratory Disorders Yes Hx Sleep Apnea Yes Hx of CPAP Yes Comment: doesn't use CPAP now PMH - Cardiovascular Hx Cardiovascular Disorders Yes Hx Abnormal EKG Yes Hx Chest Pain Yes Hx Heart Attack Yes: CABG Hx Hypertension Yes PMH - Neuro Hx Neurological Disorders Yes Hx Brain Tumor No Hx Syncope Yes PMH - GI Hx Gastrointestinal Disorders Yes Hx Gastroesophageal Reflux Yes Hx Ulcer Yes PMH - Hx Bladder Problem Yes Hx Prostate Problems Yes PMH - Endocrine Hx Diabetes Yes Hx Thyroid Disease No PMH - Musculoskeletal Hx Arthritis Yes PMH - Psych Hx Psychiatric Problems Yes Hx Anxiety Yes Hx Behavior Problems Yes Hx Depression Yes PMH - Hematology/Oncology Hx Cancer Yes: skin with multiple procedures Hx Chemotherapy Yes Premorbid Status: Detail (Pt lives alone in a 1 story house with 3 steps and 2 wide railings at the entrance. He has a tub/shower combination and prefers to sit in the tub but he usually stands to shower. He has a seat but does not use it. He does have a grab bar in the tub. He has an elevated toilet, no grab bar. He is Ind with all home mgmt, meal prep, laundry and yard work. He has a 4 wheeled walker but was ambulatory without an assistive device until recently.) Social History: Detail (His son and daughter in law live 7 miles away) Precautions: [place], Fall Objective Data - Pain Pain Present: Yes (Pt reports left calf pain at times.) - Mental Status Patient Orientation: Oriented x3 - Visual Perception Appears within normal limits for therapeutic activities (Pt wears glasses) - ROM Within normal limits (Eduardo UE AROM WNL) - Strength/Tone Within normal limits (Eduardo UE strength 4+/5) - Coordination Appears within normal limits for therapeutic activities - Bed Mobility Independent - Transfers Independent - Balance Balance Sitting: Good Balance Standing: Fair - Sensation Intact - Gait Detail (Pt ambulating community distances with 2 crutches. Recommend pt uses 4 wheeled walker for IADLs.) - ADL's/IADL's Detail (Pt able to demonstrate Ind with total body dressing. He reports Ind with bathing although this was not formally assessed per pt request. Pt was i nstructed and able to demonstrate learning of modifications in kitchen for light meal prep as well as he demonstrated a safe tub transfer.) Therapy Assessment - Therapy Assessment Detail (Pt is Ind with self cares and modified IADLs.) Problem List - Problem List Physical Therapy Problem List: Detail (1) Assess the patient's balance using objective balance scale. 2) Increase LE strength 1/3 muscle grade to improve stability of gait pattern 3) Assess Bed mobility 4) The patient will be independent with all transfers. 5) The patient will ambulate household distances with minimal L LE pain with 4 wheeled walker and safe gait pattern.) Occupational Therapy Problem List: Detail (1. Further assess pts level of Ind with showering and dressing. 2. Further assess pts level of Ind with IADLs.) Goals - Goals Physical Therapy Goals: 1) Assess Bed Mobility. 2) The patient will ambulate on stairs independently using proper technique. 3) The patient will ambulate safely outdoors with use of assistive device with supervision/independent. 4) The patient will ambulate with appropriate assistive device community distances using safe gait pattern and with minimal complaints of pain in L L LE. 5. Improve the patients balance by 4 points (clincial significant) Occupational Therapy Goals: Not assessed: 1. Pt will be safe and Ind with showering in standing and sitting. Goals Met: 2. Pt will be Ind with total body dressing. 3. Pt will demonstrate Ind with light meal prep task using energy conservation techniques. Prognosis - Prognosis Good Plan - Plan Physical Therapy Plan: PT 1-2 times a day for gait training, transfer training, LE strengthening and balance exercises. Occupational Therapy Plan: Pt discharged home with home OT recommended.
== END 2019-04-23 14:10 | disposition home or self-care (01) | DRG 552 ==
LOC: MEDSURG 04-16 14:33
PROVIDERS: ADMIT Internal Medicine; ATTEND Internal Medicine
DX: M54.5 Low back pain (principal); N18.4 Chronic kidney disease, stage 4 (severe); G89.29 Other chronic pain; R41.0 Disorientation, unspecified; E11.9 Type 2 diabetes mellitus without complications; Z79.4 Long term (current) use of insulin; R47.81 Slurred speech; I10 Essential (primary) hypertension; E78.5 Hyperlipidemia, unspecified; I25.10 Atherosclerotic heart disease of native coronary artery without angina pectoris; F41.8 Other specified anxiety disorders; I25.2 Old myocardial infarction; K21.9 Gastro-esophageal reflux disease without esophagitis; R42 Dizziness and giddiness; C44.90 Unspecified malignant neoplasm of skin, unspecified; Z86.19 Personal history of other infectious and parasitic diseases; Z66 Do not resuscitate
CPT/HCPCS: 36416; 82948; 97530; 99306; 99310; 99316